=== PATIENT | male | born 1955 | race American Indian/Alaskan Native ===

== ENCOUNTER 2020-07-08 15:53 | Emergency (ER) | payer MEDICARE, OTHER ==
[~2020-07-08] VITALS: Ht 172.7 cm; Wt 77.1 kg
--- OUTSIDE RECORDS SUMMARY | ~2020-07-08 | XMS | Encounter Summary ---
Demographics + + + | Address | [address] | | | [place] [address] | + + + | Home Phone | | + + + | Preferred Language | Unknown | + + + | Marital Status | Unknown | + + + | Scientologist Affiliation | Unknown | + + + | Race | Unknown | + + + | Ethnic Group | Unknown | + + + Author + + + | Author | [facility] | | | and [place] | + + + | Organization | [facility] | | | and [place] | + + + | Address | Unknown | + + + | Phone | Unavailable | + + + Care Team Providers + +------+ + | Care Addressing Machine Operator Name | Role | Phone | + +------+ + PCP | Unavailable | + +------+ + Encounter Details +--------+ + + + + | Date | Type | Department | Care Team | Description | +--------+ + + + + | 09/20/ | Hospital | [facility] | | | | 2001 - | Encounter | [facility] | | | | | | [facility] [address] | | | | 11/14/ | | [place] | | | | 2001 | | [id number] | | | | | | [phone] | | | +--------+ + + + + Social History + +-------+ +--------+------+ | Tobacco Use | Types | Packs/Day | Years | Date | | | | | Used | | + +-------+ +--------+------+ | Never Assessed | | | | | + +-------+ +--------+------+ + + + | Sex Assigned at | Date Recorded | | | | + + + | Not on file | | + + + documented as of this encounter Plan of Treatment Not on filedocumented as of this encounter Visit Diagnoses Not on filedocumented in this encounter"
--- OUTSIDE RECORDS SUMMARY | ~2020-07-08 | XMS | Clinical Summary ---
Demographics + + + | Address | [address] | | | [place] [address] | + + + | Home Phone | | + + + | Preferred Language | Unknown | + + + | Marital Status | Unknown | + + + | Christianity Affiliation | Unknown | + + + | Race | Unknown | + + + | Ethnic Group | Unknown | + + + Author + + + | Author | [facility] | | | and [place] | + + + | Organization | [facility] | | | and [place] | + + + | Address | Unknown | + + + | Phone | Unavailable | + + + Care Team Providers + +------+ + | Care Nail Expert Name | Role | Phone | + +------+ + | Sylvester Collazo DO | VARINDER | | + +------+ + Allergies Not on File Medications Not on file Active Problems Not on file Social History + +-------+ +--------+------+ | Tobacco Use | Types | Packs/Day | Years | Date | | | | | Used | | + +-------+ +--------+------+ | Current Every Day | | 0.25 | | | | Smoker | | | | | + +-------+ +--------+------+ + + | Comments: pt intubated, unable to discuss cessation | + + + + + | Sex Assigned at | Date Recorded | | | | + + + | Not on file | | + + + Last Filed Vital Signs + + + + + | Vital Sign | Reading | Time Taken | Comments | + + + + + | Blood Pressure | 139/83 | 03/25/2016 8:56 AM | | | | | PDT | | + + + + + | Pulse | 60 | 03/25/2016 8:56 AM | | | | | PDT | | + + + + + | Temperature | - | - | | + + + + + | Respiratory Rate | - | - | | + + + + + | Oxygen Saturation | - | - | | + + + + + | Inhaled Oxygen | - | - | | | Concentration | | | | + + + + + | Weight | 81.6 kg (180 lb) | 03/25/2016 8:56 AM | | | | | PDT | | + + + + + | Height | 172.7 cm (5' 8") | 03/25/2016 8:56 AM | | | | | PDT | | + + + + + | Body Mass Index | 27.37 | 03/25/2016 8:56 AM | | | | | PDT | | + + + + + Plan of Treatment + + +-------+ + | Health Maintenance | Due Date | Last | Comments | | | | Done | | + + +-------+ + | Vaccine: | | | | | Dtap/Tdap/Td (1 - | 3 | | | | Tdap) | | | | + + +-------+ + | Vaccine: Zoster (1 | | | | | of 2) | 4 | | | + + +-------+ + | Vaccine: | | | | | Pneumococcal 65+ (1 | 9 | | | | of 1 - PPSV23) | | | | + + +-------+ + | Vaccine: Influenza | | | | | (#1) | 0 | | | + + +-------+ + Results Not on filefrom Last 3 Months
--- OUTSIDE RECORDS SUMMARY | ~2020-07-08 | XMS | Encounter Summary ---
Demographics + + + | Address | [address] | | | [place] [address] | + + + | Home Phone | | + + + | Preferred Language | Unknown | + + + | Marital Status | Unknown | + + + | Holiness Affiliation | Unknown | + + + | Race | Unknown | + + + | Ethnic Group | Unknown | + + + Author + + + | Author | [facility] | | | and [place] | + + + | Organization | [facility] | | | and [place] | + + + | Address | Unknown | + + + | Phone | Unavailable | + + + Care Team Providers + +------+ + | Care Vault Mechanic Name | Role | Phone | + +------+ + PCP | Unavailable | + +------+ + Encounter Details +--------+ + + + + | Date | Type | Department | Care Team | Description | +--------+ + + + + | 10/21/ | Hospital | [facility] | Pablo Gaona MD | Convulsions, | | 2015 - | Encounter | [facility] | [address] | unspecified | | | | CARE [address]LO[phone] | [place], [place] | convulsion type | | 10/23/ | | [address] | [id number] | ([facility]); Electrolyte | | 2014 | | [place], [place] | | imbalance | | | | [address] | | | | | | [phone] | | | +--------+ + + + [...] + + documented as of this encounter Discharge Summaries Elin Covington MD - 10/23/2015 3:26 PM PSTFormatting of this note might be different f rom the original. Discharge Summaries by Elin Covington MD at 10/23/15 1526 Author: Elin Covington MD Service: Hospitalist Author Type: Physician Filed: 10/29/15 1354 Date of Service: 10/23/15 1526 Status: Signed Babbitt Spinner: Elin Covington MD (Physician) [facility] Service: Hospitalist Discharge Summary Date of Admission: 10/21/2015 Date of Discharge: 10/23/15 Discharge Provider: ELIN COVINGTON MD Treatment Team: Consulting Physician: Gurjit Quiñones MD Admitting Provider: Pablo Gaona MD Discharge Diagnoses: Active Problems: Seizures (HCC) Electrolyte imbalance Acute respiratory failure with hypoxia (HCC) Resolved Problems: * No resolved hospital problems. * Final Diagnoses: See note and epic Procedures: * No surgery found * BRIEF HISTORY OF PRESENTATION: Pablo Gaona MD Physician Signed Certified Nurse Aide H&P 10/22/15 0431 Expand All Collapse [facility] Service: Certified Nurse Aide Admission History & Physical Mayank Vanpelt 59 y.o. Date of Admission: 10/21/2015 Requesting Physician: Dr price , Hospitalist Indication for ICU Admission: mental status changes History Obtained From: chart review CHIEF COMPLAINT: altered mental status HISTORY OF PRESENT ILLNESS Based on the available history the patient was taken to [facility] for history of passing out and seizure-like activity. The patient regained consciousness by the time he r eached the hospital and was complaining of abdominal pain and vomiting. He was treated with antibiotics for suspected UTI. On the regular floors he develop another episode of unconsc iousness which was treated as seizure and was intubated. Due to a lack of neurologist and E EG the patient was transferred to [facility]. When the patient came to [facility] he was awake, fol lowing commands. He was not able to give any history. An EEG was done which was provisiona lly negative. He was extubated to room air. There were no witnessed seizures in our hospital. The available labs from [facility] are sodium 133, potassium 3.2, chloride 102, bicarbonate 19, an and 15, BUN 19, creatinine 0.8, glucose 246, lactate 4.9, and calcium 8. 3, total bili 0.3, AST 16, ALT 11, alkaline phosphatase 86, total protein 8.1, albumin 4.2. Urine analysis was positive for leukocyte esterase and WBCs. Urine toxicology was positive for marijuana HOSPITAL COURSE: Seizures (HCC) (10/22/2015) Assessment: see neurology reccs. Will be on keppra at d/c and f/u with neurology. MRI b rain accomplished per their reccs and report below. Discussed full seizure precautions. Electrolyte imbalance (10/22/2015) Assessment: presently improved. Follow with pcp. Will c/w the magnesium and also give s ome phos, follow up labs with pcp Acute respiratory failure with hypoxia (HCC) (10/22/2015) Assessment: in setting of seizire and initially admitted to the icu as above, presently i mproved. etoh use: will d/c on MVI and thiamine As per neurology note (parial): ""ASSESSMENT & PLAN 59 year old male who presents with new onset seizures. 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 He had two additional seizures since Wednesday. He also has UTI. Curre ntly he is almost back to baseline. Neurological exam is unremarkable. EEG showed diffuse sl owing with no epileptiform discharges. - The most recent seizures are not associated with clear provoking factor. There is no obed r history of alcohol withdraw or drug use. Electrolytes are unremarkable and UTI is not suff icient to provoke seizure. Given recurrent seizure without clear provoking factor and potent ial focal onset (head turn), will recommend to continue anticonvulsant. Can continue keppra, increase to 750 mg bid. - Recommend brain MRI w/wo contrast - Seizure precautions. - Discussed safety issues including driving regulations, no driving until free of seizure f or at least 6 months""". 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 No pertinent past surgical history. No Known Allergies Prescriptions prior to admission Medication Sig Dispense Refill Last Dose Calcium-Vitamin D 600-200 MG-UNIT per tablet Take 1 tablet by mouth 2 (two) times daily . magnesium oxide (MAG-OX) 400 MG tablet Take 400 mg by mouth daily. DISCHARGE EXAM Vital Signs: BP 164/87 mmHg | Pulse 76 | Temp(Src) 98.2 F (36.8 C) (Oral) | Resp 18 | Ht 1.727 m (5' 8") | Wt 76.5 kg (168 lb 10.4 oz) | BMI 25.65 kg/m2 | SpO2 100% No data found. No data recorded. No data recorded. I&O Current Shift: I&O Yesterday: I&O Last 3 Shifts: No intake or output data in the 24 hours ending 10/29/15 1351 Physical Exam Constitutional: He is oriented to person, place, and time. He appears well-developed and we ll-nourished. No distress. Eyes: No scleral icterus. Neck: No JVD present. Cardiovascular: Normal rate and regular rhythm. No murmur heard. Pulmonary/Chest: Effort normal. No respiratory distress. He has no wheezes. He has no rales . Abdominal: Soft. Bowel sounds are normal. He exhibits no distension. There is no tenderness . There is no rebound and no guarding. Musculoskeletal: He exhibits no tenderness. Neurological: He is alert and oriented to person, place, and time. No cranial nerve deficit . Skin: No rash noted. He is not diaphoretic. No erythema. No pallor. Psychiatric: He has a normal mood and affect. His behavior is normal. Judgment and thought content normal. Nursing note and vitals reviewed. DATAResults for MAYANK KIRAN ( ) as of 10/29/2015 13:47 Ref. Range 10/22/2015 00:17 10/22/2015 00:18 10/22/2015 03:47 10/22/2015 15:04 10/23/2015 05:50 WBC Latest Range: 3.80-11.00 K/uL 8.77 15.53 (H) RBC Latest Range: 4.20-5.70 M/uL 4.21 4.56 HGB Latest Range: 13.2-17.0 g/dL 13.2 14.1 HCT Latest Range: 39.0-50.0 % 40.0 42.5 MCV Latest Range: 80.0-100.0 fl 95.1 93.3 MCH Latest Range: 27.0-34.0 pg 31.4 31.0 MCHC Latest Range: 32.0-35.5 g/dL 33.0 33.2 RDW SD Latest Range: 37-53 fl 47.3 43.3 Platelets Latest Range: 150-400 K/uL 214 235 MPV Latest Units: fl 6.5 6.6 DIFF TYPE No range found AUTOMATED AUTOMATED NEUTROPHILS Latest Units: % 64.72 80.93 LYMPHOCYTES Latest Units: % 25.91 11.66 MONOCYTES Latest Units: % 7.53 6.02 EOSINOPHILS Latest Units: % 1.35 0.85 BASOPHILS Latest Units: % 0.49 0.54 NEUTROPHILS ABS Latest Range: 1.90-7.40 K/uL 5.67 12.57 (H) LYMPHOCYTES ABS Latest Range: 1.00-3.90 K/uL 2.27 1.81 MONOCYTES ABS Latest Range: 0.00-0.80 K/uL 0.66 0.93 (H) EOSINOPHILS ABS Latest Range: 0.00-0.50 K/uL 0.12 0.13 BASOPHILS ABS Latest Range: 0.00-0.10 K/uL 0.04 0.08 SODIUM Latest Range: 135-143 mmol/L 143 140 POTASSIUM Latest Range: 3.5-4.9 mmol/L 3.7 4.0 3.6 CHLORIDE Latest Range: 99-109 mmol/L 113 (H) 108 CO2 Latest Range: 23-32 mmol/L 26 25 ANION GAP AGAP Latest Range: 5-20 mmol/L 7 10 GLUCOSE Latest Range: 65-99 mg/dL 82 89 BUN Latest Range: 8-25 mg/dL 8 6 (L) CREATININE Latest Range: 0.70-1.30 mg/dL 1.0 0.60 (L) BUN/CREAT No range found 8 10 CALCIUM Latest Range: 8.5-10.5 mg/dL 7.2 (L) 7.6 (L) EGFR Latest Range: >60 mL/min/1.73m2 >60 >60 PHOSPHORUS Latest Range: 2.3-4.8 mg/dL 1.7 (L) 2.4 1.6 (L) MAGNESIUM Latest Range: 1.7-2.4 mg/dL 2.1 2.1 2.0 INR No range found 1.0 Procedure Component Value Units Date/Time Sputum culture [[id number]] (Abnormal) Collected: 10/21/152354 Order Status: Completed Lab Status: Final result Updated: 10/24/15742 Specimen Information: Sputum / Sputum Specimen Description SPUTUM GRAM STAIN GREATER THAN 10 WBCS/LPF GRAM STAIN LESS THAN 10 SEC/LPF GRAM STAIN NO ORGANISMS SEEN GRAM STAIN Result: Testing performed at [facility];[address] [place] [address] CULTURE 1+ YEAST ISOLATED (A) NO FURTHER WORKUP Result: Testing performed at [facility], [address] [place] [address] MRSA by PCR [[id number]] Collected: 10/21/152353 Order Status: Completed Lab Status: Final result Updated: 10/22/15113 Specimen Information: Nasopharyngeal / Nares(Nose) SOURCE NARES(NOSE) Comment: Testing performed at [facility];[address] [place] [address] MRSA PCR NEGATIVE Comment: Testing performed at [facility];[address] [place] [address] MRSA by PCR [[id number]] Collected: 10/22/15 0037 Order Status: Canceled Lab Status: No result Specimen Information: Nasopharyngeal / Nasopharyngeal Culture MRI brain with and without contrast [[id number]] Resulted: 10/22/15 191 Order Status: Completed Updated: 10/22/151923 Narrative: MAYANK KIRAN 10/22/2015 6:33 PM HISTORY: New onset seizures. TECHNIQUE: Using a 1.5 Ivana MRI unit, standard multiplanar pre-and post intravenous contrast sequence s through the brain were obtained.15 milliliters of MultiHance were utilized. COMPARISON: None. FINDINGS: There is no midline shift. The ventricles, sulci, and basilar cisterns are normal. There is focal low T1/high T2 signal within the right basal ganglia, likely reflecting an o ld lacunar infarct vs. dilated perivascular space. No additional low or high signal lesions are seen within the brain. No abnormal brain parenchymal or meningeal enhancement. The hippo campi are symmetric bilaterally. The extra-axial spaces are normal. The vascular flow voids appear normal. No intracranial h emorrhage. The paranasal sinuses are normal. The mastoids are normal. The orbits are unremarkable. No osseous lesions. Impression: 1. No acute intracranial hemorrhage, mass lesion, or acute infarct. 2. No abnormal brain parenchymal enhancement. X-ray chest AP only [[id number]] Resulted: 10/22/15 0040 Order Status: Completed Updated: 10/22/1543 Narrative: EXAM: CHEST RADIOGRAPHY EXAM DATE: 10/21/2015 11:55 PM. CLINICAL HISTORY: Cardiopulmonary failure COMPARISON: None. TECHNIQUE: 1 view. FINDINGS: Lungs/Pleura: No focal opacities evident. No pneumothorax or pleural effusion. Mediastinum: Within exam limitations, cardiomediastinal contour is normal. Other: None. Impression: 1. Endotracheal tube tip is approximately 1.5 cm above the agustin. 2. Lung volumes and heart size within normal limits. 3. There is no evidence of lobar consolidation or pneumothorax. RADIA Electronically signed by Geovanny Mitchell MD on Oct 22 2015 12:40AM Referring Provider Pamela ne: [phone] ID: [id number] Sputum culture [[id number]] (Abnormal) Collected: 10/21/15 7635 Order Status: Completed Lab Status: Final result Updated: 10/24/15 0726 Specimen Information: Sputum / Sputum Specimen Description SPUTUM GRAM STAIN GREATER THAN 10 WBCS/LPF GRAM STAIN LESS THAN 10 SEC/LPF GRAM STAIN NO ORGANISMS SEEN GRAM STAIN Result: Testing performed at [facility];[address] [place] [address];[place] [address] CULTURE 1+ YEAST ISOLATED (A) NO FURTHER WORKUP Result: Testing performed at [facility], [address] [place] [address] MRSA by PCR [[id number]] Collected: 10/21/15 2354 Order Status: Completed Lab Status: Final result Updated: 10/22/15113 Specimen Information: Nasopharyngeal / Nares(Nose) SOURCE NARES(NOSE) Comment: Testing performed at [facility];[address] [facility];[place] [address] MRSA PCR NEGATIVE Comment: Testing performed at [facility];[address] [place] [address] MRSA by PCR [[id number]] Collected: 10/22/15 003 Order Status: Canceled Lab Status: No result Specimen Information: Nasopharyngeal / Nasopharyngeal Culture Disposition: Home Condition: Stable Code Status: Full Code Discharge Instructions CBC w/auto diff (reflex to manual) Standing Status: Future Standing Exp. Date: 10/31/15 Order Comments: PLEASE FORWARD TO HIS pcp : SYLVESTER Collazo Comprehensive metabolic panel Standing Status: Future Standing Exp. Date: 10/31/15 Order Comments: PLEASE FORWARD TO HIS pcp : SYLVESTER Collazo Magnesium Standing Status: Future Standing Exp. Date: 10/31/15 Order Comments: PLEASE FORWARD TO HIS pcp : SYLVESTER Collazo Phosphorus Standing Status: Future Standing Exp. Date: 10/31/15 Order Comments: PLEASE FORWARD TO HIS pcp : SYLVESTER Collazo Diet General Seizure precautions Nursing communication Order Comments: Please ensure patient has printed seizure precautions to include but not li mited to NO DRIVING, NO SWIMMING, NO BEING AROUND OPEN FLAMES, NO CLIMBING LADDERS, NO DOIN G ANYTHING THAT COULD PROVE DANGEROUS TO YOURSELF OR OTHERS IF YOU WERE TO HAVE A SEIZURE. NO ALCOHOL OR ILLICIT DRUGS Activity as Advised by Physical Therapy Call MD for: Order Comments: ANY DISTRESS OR CONCERNS ANY FURTHER SEIZURES Call MD for: Extreme Fatigue Call MD for: Persistant Dizziness or Light-Headedness Call MD for: Hives Call MD for: Difficulty Breathing, Headache or Visual Disturbances Call MD for: Redness, Tenderness, or Signs of Infection (Pain, Swelling, Redness, Odor or Green/Yellow Discharge Around Incision Site) Call MD for: Severe Uncontrolled Pain Call MD for: Persistant Nausea and Vomiting Call MD for: Temperature > 100.4F (38C) Follow [place]: [place] [address] [place] [address] PLEASE TRY TO SCHEDULE AN APPOINTMENT THE END OF THIS WEEK OR BEGINING OF NEXT TO F/U ON IS ADMISSION Gurjit Quiñones MD [address] [facility] [address] Schedule an appointment as soon as possible for a visit in 1 month OR SOONER IF NEEDED RESUME CARE WITH ALL PROVIDERS YOU WERE SEEING BEFORE ADMISSION Medication List START taking these medications levetiracetam 750 MG tablet QTY: 60 tablet Refills: 0 Commonly known as: KEPPRA Take 1 tablet by mouth 2 (two) times daily. multivitamin tablet QTY: 30 tablet Refills: 0 Take 1 tablet by mouth daily. phosphorus 250 MG tablet QTY: 14 tablet Refills: 0 Commonly known as: K PHOS NEUTRAL Take 1 tablet by mouth 2 (two) times daily. thiamine 100 MG tablet QTY: 30 tablet Refills: 0 Commonly known as: VITAMIN B-1 Take 1 tablet by mouth daily. 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 You may get the following medications from any pharmacy - levetiracetam 750 MG tablet - multivitamin tablet - phosphorus 250 MG tablet - thiamine 100 MG tablet Discharge took 40 minutes, to include final examination, discussion of admission, and prepa ration of prescriptions, instructions for on-going care, follow-up and documentation of disc harge summary. ELIN COVINGTON MD 10/23/2015 documented in this encounter Progress Notes Conversion Transaction, Provider Unknown - 10/23/2015 5:57 PM PSTFormatting of this note m ight be different from the original. Nurse Progress Note by Sharona Talbert RN at 10/23/151756 Author: Sharona Talbert RN Service: (none) Author Type: Registered Nurse Filed: 10/23/151757 Date of Service: 10/23/151756 Status: Signed Babbitt Spinner: Sharona Talbert RN (Registered Nurse) D/c instructions, Rx's, lab orders, and seizure precautions given and explained to pt and h is brother, both state understanding. Pt escorted via wheelchair to private vehicle. Pt left in stable condition. onver marivel Transaction, Provider Unknown - 10/23/2015 2:18 PM PST Therapy Progress Note by Deborah Conner PT at 10/23/151417 Author: Deborah Conner PT Service: (none) Author Type: Physical Therapist Filed: 10/23/151417 Date of Service: 10/23/151417 Status: Signed Babbitt Spinner: Deborah Conner PT (Physical Therapist) 10/23/15 1300 PT Last Visit PT Received On 10/23/15 Reason for Treatment Cardiac Requires PT Follow Up No Follow up PT Only? No Assistance Required Independent Wood Chopper Needed No Other Comments Comments PT trialed SPC and it is more of a fall hazard and patient able to mobilize safely with paying attention and looking foward rather than at the ground.PT to be dc'ed and pt to mobilize as needed. Cognition Overall Cognitive Status Not assessed Bed Mobility Supine to Sit Independent Sit to Supine Independent Scooting Independent Transfers Sit to/from Stand Independent (from/to bed) Mobility Ambulation Assistance Independent;Verbal instruction Maximal Ambulation Distance (feet) 740 Total Ambulation Distance (feet) 740 Pattern WFL (mild gait path deviation when not paying attention) Assistive Device None Balance Balance (appropriate balance when paying attention) Activity Tolerance Activity Tolerance Patient tolerated treatment without report of fatigue Plan Treatment/Interventions Discharge skilled PT services Progress Reached highest level of independence with therapy Recommendation Recommendations Home Assist;OP PT Equipment Recommended None PT Ready for Discharge Yes Recommendation Comments Pt safe to return home-PT rec OP PT for L foot weakness (chronic) a nd mild gait impairments onver marivel Transaction, Provider Unknown - 10/23/2015 2:16 PM PST Case Management by Maynor Schofield MS, GLAZIER SUPERVISOR at 10/23/15 1416 Author: Maynor Schofield MS, GLAZIER SUPERVISOR Service: (none) Author Type: Architecture Department Chair Filed: 10/23/15 1422 Date of Service: 10/23/151415 Status: Signed Babbitt Spinner: Maynor Schofield MS, GLAZIER SUPERVISOR (Architecture Department Chair) Discharge planning - Cm met with pt, his sister Roxie,and extended family in room. PT and f raisay confirm that there is supervision at home for patient at all times. The discharge plan remains the same as previously charted on 10/22/2015 by TITI. CM educated re: PT/OT recommenda tions, family will supplement pt's adls and IADLS as appropriate. RN notified. Family is kathleen dy to transport pt back to [place] today. onver marivel Transaction, Provider Unknown - 10/23/2015 8:05 AM PST Therapy Progress Note by KAREN Aranda at 10/23/15 08 Author: KAREN Aranda Service: (none) Author Type: Occupational Therapist Filed: 10/23/15 1146 Date of Service: 10/23/15804 Status: Signed Babbitt Spinner: KAREN Aranda (Occupational Therapist) 10/23/15804 OT Last Visit OT Received On 10/23/15 Reason for Treatment Deconditioning Requires OT Follow Up Awaiting tx order OT Eval/Reassessment Date 10/23/15 Assistance Required 1 person Wood Chopper Needed No Family/Caregiver Present No Precautions Other Precautions fall precautions Other Comments Comments Pt supine in bed sleeping but awoke easily and was agreeable to OT assessment. VSS stable throughout, RN present with pt at end of session. Plan Treatment Interventions ADL retraining;IADL retraining;UE strengthening;Cognitive reorienta tion;Equipment eval/education;Compensatory technique education Progress Progressing toward goals OT Frequency QD;5x/wk Requires OT Follow Up Yes Recommendation Recommendation Return to prior living conditions;Home with daytime assist;Home OT Equipment Recommended Shower chair with back;Betting Clerk;Sponge long handled OT Ready for Discharge Yes 10/23/15 0805 Home Environment Type of Home Home one story Home Exterior Layout Entry steps none Home Interior Layout Lives on main level with bedroom/bathroom Bathroom Shower/Tub Tub/shower unit Bathroom Toilet Standard Bathroom Equipment (none ) Bathroom Accessibility Not accessible Home Equipment None Additional Comments Pt seen by OT d/t deconditioning s/p seizure like activity; intubated a nd transfered to [facility]. Pt extubated. Chart review indicates mental status change. Pt states he hasnt noticed any change. No family present at time of eval. Pt reports no fall hx. Prior Function Level of [place] Driving in community;Independent with functional mobility;Independent with ADLs;Independent with IADLs Lives With Sibling(s) (and "step folks") ADL Assistance Independent Home ADL's Independent Fireproof Door Maker Making bed;Washing dishes Employment On disability Leisure Hobbies-yes (Comment) (leather working ) ADL Grooming Assistance Standby assist (minor LOB; pt self corrected by holding onto sink ) Grooming impacted by Safety concerns Bathing Assistance Other (comment) (siulated tub/shower t/f; pt able to step high enough ) Bathing impacted by (to clear tub ledge; holding onto wall for support) UE Dressing Assistance BISI (hospital gown ) LE Dressing Assistance Standby assist (educated on use of parts processor to obtain clothing ) Lower body dressing impacted by Endurance;Safety concerns Toileting Assistance with Device Supervision Toileting impacted by Safety concerns;Endurance Functional Assistance Supervision;Standby assist Toileting transfer impacted by Safety concerns Additional Comments pt able to ambulate in room w/SPC and supervision. Pt educated on use o f AE will need shower chair. 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 See below for cog assessment details. Pt would benefit from continued acute care OT for str engthening to inc activity tolerance with daily tasks, reinforcement of ed on AE, cognitive activities to improve attention, memory and general executive functioning for daily tasks/IA DLs. Vision-Basic Assessment Current Vision Wears glasses Cognition Overall Cognitive Status Impaired Orientation Level Oriented Comments Participated in the [place] Cognitive Assessment (MoCA) scored 14/30. Indicating s/s consistent with dementia. Pt was unable to complete trail making task, was able to copy a 3D figure, able to draw a clock but not accurately place hands to correct time. Able to id entify 2/3 animals, scored 2/5 on Attention subtests; 1/3 on Language sub tests, 2/2 on Abst raction. 0/5 Recall of words and 4/6 for orientation. Recommend supervision/assist with IADL s upon d/c. Sensation Light Touch No apparent deficits RUE Assessment RUE Assessment WFL (deconditioned ) LUE Assessment LUE Assessment (decondioned) Hand Function Gross Grasp Functional Functional Gross Grasp Able to grasp objects without difficulty;Able to hold objects in dom inant hand;Able to hold objects in non-dominant hand;Pen/Pencil;AD for mobility / ADL Coordination Functional Assessment Assessment Decreased ADL status;Decreased UE strength;Decreased cognition;Decreased enduran ce;Decreased high-level ADLs Prognosis Good;With family;With continued OT s/p acute discharge Goal Formulation Patient ADL Goals Pt Will Perform All ADL's (pt will particiapte in home safety questionnaire and ed) Arm Goals Pt Will Perform AROM (pt will complete simple IADL -making bed with SBA ) Pt Will Complete Theraband Exer B UE;2 sets;10 reps;Level 1 Theraband Plan Treatment Interventions ADL retraining;IADL retraining;UE strengthening;Cognitive reorienta tion;Equipment eval/education;Compensatory technique education Progress Progressing toward goals OT Frequency QD;5x/wk Requires OT Follow Up Yes Recommendation Recommendation Return to prior living conditions;Home with daytime assist;Home OT Equipment Recommended Shower chair with back;Betting Clerk;Sponge long handled OT Ready for Discharge Yes Education Completed: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 He had two additional seizures since Wednesday. He also has UTI. Curre ntly he is almost back to baseline. Neurological exam is unremarkable. EEG showed diffuse sl owing with no epileptiform discharges. - The most recent seizures are not associated with clear provoking factor. There is no obed r history of alcohol withdraw or drug use. Electrolytes are unremarkable and UTI is not suff icient to provoke seizure. Given recurrent seizure without clear provoking factor and potent ial focal onset (head turn), will recommend to continue anticonvulsant. Can continue keppra, increase to 750 mg bid. - Recommend brain MRI w/wo contrast - Seizure precautions. - Discussed safety issues including driving regulations, no driving until free of seizure f or at least 6 months. Code Status: Full Code Primary Care Physician: SYLVESTER COLLAZO Thank you for allowing me to participate in the care of this patient. Please call if there are any questions. Gurjit Quiñones MD 10/22/2015 5:15 PM documented in this encounte r Miscellaneous Notes Plan of Care - Conversion Transaction, Provider Unknown - 10/22/2015 9:18 PM PST Plan of Care by Ciara Escobar RN at 10/22/152117 Author: Ciara Escobar RN Service: (none) Author Type: Registered Nurse Filed: 10/22/152117 Date of Service: 10/22/152117 Status: Signed Babbitt Spinner: Ciara Escobar RN (Registered Nurse) Problem: Safety Goal: Patient will be injury free during hospitalization Assess and monitor vitals signs, neurological status including level of consciousness and o rientation. Assess patient s risk for falls and implement fall prevention plan of care and interventions per hospital policy. Ensure arm band on, uncluttered walking paths in room, adequate room lighting, call light a nd overbed table within reach, bed in low position, wheels locked, side rails up per policy, and non-skid footwear provided. Outcome: Progressing Bed alarm initiated lan o f Care - Elin Covington MD - 10/22/2015 10:12 AM PSTFormatting of this note might be dif ferent from the original. Plan of Care by Elin Covington MD at 10/22/15 1012 Author: Elin Covington MD Service: Hospitalist Author Type: Physician Filed: 10/22/15 1013 Date of Service: 10/22/15 1012 Status: Signed Babbitt Spinner: Elin Covington MD (Physician) Patient accepted to hospitalist service. Neurology already consulted and pending eval, eeg pending, consulted case mgt and PT for ev al. Seizure precautions documented in this encounter Plan of Treatment Not on filedocumented as of this encounter Procedures + +--------+ + + + | Procedure Name | Priori | Date/Time | Associated Diagnosis | Comments | | | ty | | | | + +--------+ + + + | EXTERNAL LAB: CBC | Routin | 10/23/2015 | | Results for this | | | e | 5:50 AM | | procedure are in the | | | | PST | | results section. | + +--------+ + + + | PHOSPHORUS | Routin | 10/23/2015 | | Results for this | | | e | 5:50 AM | | procedure are in the | | | | PST | | results section. | + +--------+ + + + | MAGNESIUM | Routin | 10/23/2015 | | Results for this | | | e | 5:50 AM | | procedure are in the | | | | PST | | results section. | + +--------+ + + + | BASIC METABOLIC | Routin | 10/23/2015 | | Results for this | | PANEL | e | 5:50 AM | | procedure are in the | | | | PST | | results section. | + +--------+ + + + | MRI BRAIN W WO | Routin | 10/22/2015 | | Results for this | | CONTRAST | e | 6:33 PM | | procedure are in the | | | | PST | | results section. | + +--------+ + + + | POTASSIUM | Routin | 10/22/2015 | | Results for this | | | e | 3:04 PM | | procedure are in the | | | | PST | | results section. | + +--------+ + + + | PHOSPHORUS | Routin | 10/22/2015 | | Results for this | | | e | 3:47 AM | | procedure are in the | | | | PST | | results section. | + +--------+ + + + | MAGNESIUM | Routin | 10/22/2015 | | Results for this | | | e | 3:47 AM | | procedure are in the | | | | PST | | results section. | + +--------+ + + + | PROTIME INR | Routin | 10/22/2015 | | Results for this | | | e | 12:18 AM | | procedure are in the | | | | PST | | results section. | + +--------+ + + + | EXTERNAL LAB: CBC | Routin | 10/22/2015 | | Results for this | | | e | 12:17 AM | | procedure are in the | | | | PST | | results section. | + +--------+ + + + | PHOSPHORUS | Routin | 10/22/2015 | | Results for this | | | e | 12:17 AM | | procedure are in the | | | | PST | | results section. | + +--------+ + + + | MAGNESIUM | Routin | 10/22/2015 | | Results for this | | | e | 12:17 AM | | procedure are in the | | | | PST | | results section. | + +--------+ + + + | LACTIC ACID | Routin | 10/22/2015 | | Results for this | | | e | 12:17 AM | | procedure are in the | | | | PST | | results section. | + +--------+ + + + | BASIC METABOLIC | Routin | 10/22/2015 | | Results for this | | PANEL | e | 12:17 AM | | procedure are in the | | | | PST | | results section. | + +--------+ + + + | POC GLUCOSE | Routin | 10/21/2015 | | Results for this | | | e | 11:59 PM | | procedure are in the | | | | PST | | results section. | + +--------+ + + + | XR CHEST 1 VIEW | Routin | 10/21/2015 | | Results for this | | | e | 11:55 PM | | procedure are in the | | | | PST | | results section. | + +--------+ + + + | GRAM STAIN, REFLEX | Timed | 10/21/2015 | | Results for this | | SPUTUM CULTURE | | 11:55 PM | | procedure are in the | | | | PST | | results section. | + +--------+ + + + | MRSA NAAT | Timed | 10/21/2015 | | Results for this | | | | 11:54 PM | | procedure are in the | | | | PST | | results section. | + +--------+ + + + documented in this encounter Results External Lab: CBC (10/23/2015 5:50 AM PST) + + + + + + | Component | Value | Ref Range | Performed | Pathologist | | | | | At | Signature | + + + + + + | WBC | 15.53 (H)Comment: | 3.80 - 11.00 | EXTERNAL | | | | Testing performed at | K/uL | LAB | | | | [facility];[address];[place] [address] | | | | + + + + + + | Non- | 4.56Comment: Testing | 4.20 - 5.70 | EXTERNAL | | | Red Blood | performed at [facility];[address] | M/uL | LAB | | | Cells | [address];[place] | | | | | Counted | [address] | | | | + + + + + + | Hemoglobin | 14.1Comment: Testing | 13.2 - 17.0 | EXTERNAL | | | | performed at [facility];[address] | g/dL | LAB | | | | [address];[place] | | | | | | [address] | | | | + + + + + + | Hematocrit, | 42.5Comment: Testing | 39.0 - 50.0 % | EXTERNAL | | | POC | performed at [facility];[address] | | LAB | | | | [address];[place] | | | | | | [address] | | | | + + + + + + | MCV | 93.3Comment: Testing | 80.0 - 100.0 fl | EXTERNAL | | | | performed at [facility];[address] | | LAB | | | | [address];[place] | | | | | | [address] | | | | + + + + + + | MCH | 31.0Comment: Testing | 27.0 - 34.0 pg | EXTERNAL | | | | performed at [facility];[address] | | LAB | | | | [address];[place] | | | | | | [address] | | | | + + + + + + | MCHC | 33.2Comment: Testing | 32.0 - 35.5 | EXTERNAL | | | | performed at [facility];[address] | g/dL | LAB | | | | [address];[place] | | | | | | [address] | | | | + + + + + + | RDW-CV | 43.3Comment: Testing | 37 - 53 fl | EXTERNAL | | | | performed at [facility];[address] | | LAB | | | [address];[place] | | | | | | [address] | | | | + + + + + + | Platelet | 235Comment: Testing | 150 - 400 K/uL | EXTERNAL | | | Count | performed at [facility];[address] | | LAB | | | Plasma | [address];[place] | | | | | | [address] | | | | + + + + + + | MPV | 6.6Comment: Testing | fl | EXTERNAL | | | | performed at [facility];[address] | | LAB | | | [address];[place] | | | | | | [address] | | | | + + + + + + | Differentia | AUTOMATEDComment: | | EXTERNAL | | | l Type | Testing performed at | | LAB | | | | [facility];[address];[place] [address] | | | | + + + + + + | % Segmented | 80.93Comment: Testing | % | EXTERNAL | | | | performed at [facility];[address] | | LAB | | | Neutrophils | [address];[place] | | | | | | [address] | | | | + + + + + + | % | 11.66Comment: Testing | % | EXTERNAL | | | Lymphocytes | performed at [facility];[address] | | LAB | | | | [address];[place] | | | | | | [address] | | | | + + + + + + | % Monocytes | 6.02Comment: Testing | % | EXTERNAL | | | | performed at [facility];[address] | | LAB | | | | [address];[place] | | | | | | [address] | | | | + + + + + + | % | 0.85Comment: Testing | % | EXTERNAL | | | Eosinophils | performed at [facility];[address] | | LAB | | | | [address];[place] | | | | | | [address] | | | | + + + + + + | % Basophils | 0.54Comment: Testing | % | EXTERNAL | | | | performed at [facility];[address] | | LAB | | | | [address];[place] | | | | | | [address] | | | | + + + + + + | Absolute | 12.57 (H)Comment: | 1.90 - 7.40 | EXTERNAL | | | Segmented | Testing performed at | K/uL | LAB | | | Neutrophils | [facility];[address];[place] [address] | | | | + + + + + + | Absolute | 1.81Comment: Testing | 1.00 - 3.90 | EXTERNAL | | | Lymphocytes | performed at [facility];[address] | K/uL | LAB | | | | [address];[place] | | | | | | [address] | | | | + + + + + + | Absolute | 0.93 (H)Comment: Testing | 0.00 - 0.80 | EXTERNAL | | | Monocytes | performed at [facility];[address] | K/uL | LAB | | | | [address];[place] | | | | | | [address] | | | | + + + + + + | Absolute | 0.13Comment: Testing | 0.00 - 0.50 | EXTERNAL | | | Eosinophils | performed at [facility];[address] | K/uL | LAB | | | | [address];[place] | | | | | | [address] | | | | + + + + + + | Absolute | 0.08Comment: Testing | 0.00 - 0.10 | EXTERNAL | | | Basophils | performed at [facility];[address] | K/uL | LAB | | | | [address];[place], [place] | | | | | | [address] | | | | + + + + + + + + | Specimen | + + | Blood specimen | | (specimen) | + + + +---------+ + + | Performing | Address | City/State/Zipcode | Phone Number | | Organization | | | | + +---------+ + + | EXTERNAL LAB | | | | + +---------+ + + Phosphorus (10/23/2015 5:50 AM PST) + + + + + + | Component | Value | Ref Range | Performed | Pathologist | | | | | At | Signature | + + + + + + | PHOSPHORUS | 1.6 (L)Comment: Testing | 2.3 - 4.8 mg/dL | EXTERNAL | | | | performed at [facility];[address] | | LAB | | | [address];[place], [place] | | | | | | [address] | | | | + + + + + + + + | Specimen | + + | Blood specimen | | (specimen) | + + + +---------+ + + | Performing | Address | City/State/Zipcode | Phone Number | | Organization | | | | + +---------+ + + | EXTERNAL LAB | | | | + +---------+ + + Magnesium (10/23/2015 5:50 AM PST) + + + + + + | Component | Value | Ref Range | Performed | Pathologist | | | | | At | Signature | + + + + + + | Magnesium | 2.0Comment: Testing | 1.7 - 2.4 mg/dL | EXTERNAL | | | | performed at [facility];[address] | | LAB | | | | [address];[place] | | | | | | [address] | | | | + + + + + + + + | Specimen | + + | Blood specimen | | (specimen) | + + + +---------+ + + | Performing | Address | City/State/Zipcode | Phone Number | | Organization | | | | + +---------+ + + | EXTERNAL LAB | | | | + +---------+ + + Basic Metabolic Panel (10/23/2015 5:50 AM PST) + + + + + + | Component | Value | Ref Range | Performed | Pathologist | | | | | At | Signature | + + + + + + | Na | 140Comment: Testing | 135 - 143 | EXTERNAL | | | | performed at [facility];[address] | mmol/L | LAB | | | | [address];[place] | | | | | | [address] | | | | + + + + + + | K | 3.6Comment: Testing | 3.5 - 4.9 | EXTERNAL | | | | performed at [facility];[address] | mmol/L | LAB | | | | [address];[place] | | | | | | [address] | | | | + + + + + + | Cl | 108Comment: Testing | 99 - 109 mmol/L | EXTERNAL | | | | performed at [facility];[address] | | LAB | | | | [address];[place] | | | | | | [address] | | | | + + + + + + | CO2 | 25Comment: Testing | 23 - 32 mmol/L | EXTERNAL | | | | performed at [facility];[address] | | LAB | | | | [address];[place] | | | | | | [address] | | | | + + + + + + | Anion Gap | 10Comment: Testing | 5 - 20 mmol/L | EXTERNAL | | | | performed at [facility];[address] | | LAB | | | | [address];[place] | | | | | | [address] | | | | + + + + + + | Glucose, | 89Comment: Testing | 65 - 99 mg/dL | EXTERNAL | | | Fasting | performed at [facility];[address] | | LAB | | | | [address];[place] | | | | | | [address] | | | | + + + + + + | BUN | 6 (L)Comment: Testing | 8 - 25 mg/dL | EXTERNAL | | | | performed at [facility];[address] | | LAB | | | | [address];[place] | | | | | | [address] | | | | + + + + + + | Creatinine | 0.60 (L)Comment: Testing | 0.70 - 1.30 | EXTERNAL | | | | performed at [facility];[address] | mg/dL | LAB | | | | [address];[place] | | | | | | [address] | | | | + + + + + + | BUN/Creatin | 10Comment: Testing | | EXTERNAL | | | ine Ratio | performed at [facility];[address] | | LAB | | | | [address];[place] | | | | | | [address] | | | | + + + + + + | Calcium | 7.6 (L)Comment: Testing | 8.5 - 10.5 | EXTERNAL | | | | performed at [facility];[address] | mg/dL | LAB | | | | [address];[place] | | | | | | [address] | | | | + + + + + + | Estimated | >60Comment: GFR <60: | mL/min/1.73m2 | EXTERNAL | | | GFR | CHRONIC KIDNEY DISEASE, | | LAB | | | | IF FOUND OVER A 3 MONTH | | | | | | PERIOD.GFR <15: KIDNEY | | | | | | FAILURE.FOR | | | | | | AMERICANS, MULTIPLY THE | | | | | | CALCULATED GFR BY | | | | | | 1.210.Testing performed | | | | | | at [facility];[address] [place] [address] | | | | | | [facility];[place] [address] | | | | + + + + + + + + | Specimen | + + | Blood specimen | | (specimen) | + + + +---------+ + + | Performing | Address | City/State/Zipcode | Phone Number | | Organization | | | | + +---------+ + + | EXTERNAL LAB | | | | + +---------+ + + MRI Brain w wo Contrast (10/22/2015 6:33 PM PST) + + | Specimen | + + | | + + + + + | Impressions | Performed At | + + + | 1. No acute intracranial hemorrhage, mass lesion, or acute | | | infarct. 2. No abnormal brain parenchymal enhancement. | | | | | + + + + + + | Narrative | Performed At | + + + | MAYANK FAUSTIN 10/22/2015 6:33 PM HISTORY: New onset seizures. | | | TECHNIQUE: Using a 1.5 Ivana MRI unit, standard multiplanar | | | pre-and post intravenous contrast sequences through the brain were | | | obtained.15 milliliters of MultiHance were utilized. COMPARISON: | | | None. FINDINGS: There is no midline shift. The ventricles, | | | sulci, and basilar cisterns are normal. There is focal low T1/high | | | T2 signal within the right basal ganglia, likely reflecting an old | | | lacunar infarct vs. dilated perivascular space. No additional low or | | | high signal lesions are seen within the brain. No abnormal brain | | | parenchymal or meningeal enhancement. The hippocampi are symmetric | | | bilaterally. The extra-axial spaces are normal. The vascular flow | | | voids appear normal. No intracranial hemorrhage. The paranasal | | | sinuses are normal. The mastoids are normal. The orbits are | | | unremarkable. No osseous lesions. | | + + + + + | Procedure Note | + + | Sean Pereira - 06/30/2019 11:38 AM PDT MAYANK KIRAN10/22/2015 6:33 PM | | HISTORY:New onset seizures. TECHNIQUE:Using a 1.5 Ivana MRI unit, standard multiplanar | | pre-and post intravenous contrast sequences through the brain were obtained.15 | | milliliters of MultiHance were utilized. COMPARISON:None. FINDINGS: There is no midline | | shift. The ventricles, sulci, and basilar cisterns are normal. There is focal low | | T1/high T2 signal within the right basal ganglia, likely reflecting an old lacunar | | infarct vs. dilated perivascular space. No additional low or high signal lesions are | | seen within the brain. No abnormal brain parenchymal or meningeal enhancement. The | | hippocampi are symmetric bilaterally. The extra-axial spaces are normal. The vascular | | flow voids appear normal. No intracranial hemorrhage. The paranasal sinuses are normal. | | The mastoids are normal. The orbits are unremarkable. No osseous lesions. IMPRESSION: 1. | | No acute intracranial hemorrhage, mass lesion, or acute infarct.2. No abnormal brain | | parenchymal enhancement. | | | |There is no midline shift. The ventricles, sulci, and basilar cisterns are normal. | | | |There is focal low T1/high T2 signal within the right basal ganglia, likely reflecting an o ld lacunar infarct vs. dilated perivascular space. No additional low or high signal lesions are seen within the brain. No | |abnormal brain parenchymal or meningeal | |enhancement. The hippocampi are symmetric bilaterally. | | | |The extra-axial spaces are normal. The vascular flow voids appear normal. No intracranial h emorrhage. | | | |The paranasal sinuses are normal. The mastoids are normal. The orbits are unremarkable. No osseous lesions. | | | |IMPRESSION: | |1. No acute intracranial hemorrhage, mass lesion, or acute infarct. | |2. No abnormal brain parenchymal enhancement. | | | | | + + Potassium (10/22/2015 3:04 PM PST) + + + + + + | Component | Value | Ref Range | Performed | Pathologist | | | | | At | Signature | + + + + + + | K | 4.0Comment: Testing | 3.5 - 4.9 | EXTERNAL | | | | performed at [facility];[address] | mmol/L | LAB | | | | [address];[place] | | | | | | [address] | | | | + + + + + + + + | Specimen | + + | Blood specimen | | (specimen) | + + + +---------+ + + | Performing | Address | City/State/Zipcode | Phone Number | | Organization | | | | + +---------+ + + | EXTERNAL LAB | | | | + +---------+ + + Phosphorus (10/22/2015 3:47 AM PST) + + + + + + | Component | Value | Ref Range | Performed | Pathologist | | | | | At | Signature | + + + + + + | PHOSPHORUS | 2.4Comment: Testing | 2.3 - 4.8 mg/dL | EXTERNAL | | | | performed at [facility], [address] | | LAB | | | | [address], | | | | | | [place] [address] | | | | + + + + + + + + | Specimen | + + | Blood specimen | | (specimen) | + + + +---------+ + + | Performing | Address | City/State/Zipcode | Phone Number | | Organization | | | | + +---------+ + + | EXTERNAL LAB | | | | + +---------+ + + Magnesium (10/22/2015 3:47 AM PST) + + + + + + | Component | Value | Ref Range | Performed | Pathologist | | | | | At | Signature | + + + + + + | Magnesium | 2.1Comment: Testing | 1.7 - 2.4 mg/dL | EXTERNAL | | | | performed at [facility], [address] | | LAB | | | | [address], | | | | | | [place] [address] | | | | + + + + + + + + | Specimen | + + | Blood specimen | | (specimen) | + + + +---------+ + + | Performing | Address | City/State/Zipcode | Phone Number | | Organization | | | | + +---------+ + + | EXTERNAL LAB | | | | + +---------+ + + Jacqueime INR (10/22/2015 12:18 AM PST) + + + + + + | Component | Value | Ref Range | Performed | Pathologist | | | | | At | Signature | + + + + + + | INR | 1.0Comment: REFERENCE | | EXTERNAL | | | | RANGE:0.9 - 1.2 | | LAB | | | | NON-ANTICOAGULATED2.0 | | | | | | - 3.0 ALL OTHER | | | | | | THERAPEUTIC | | | | | | INDICATIONS2.5 - 3.5 | | | | | | MECHANICAL HEART VALVES, | | | | | | RECURRENT OR SYSTEMIC | | | | | | EMBOLISMTesting | | | | | | performed at [facility] | | | | | | [address];[place], [place] | | | | | | [address] | | | | + + + + + + + + | Specimen | + + | Blood specimen | | (specimen) | + + + +---------+ + + | Performing | Address | City/State/Zipcode | Phone Number | | Organization | | | | + +---------+ + + | EXTERNAL LAB | | | | + +---------+ + + External Lab: CBC (10/22/2015 12:17 AM PST) + + + + + + | Component | Value | Ref Range | Performed | Pathologist | | | | | At | Signature | + + + + + + | WBC | 8.77Comment: Testing | 3.80 - 11.00 | EXTERNAL | | | | performed at [facility];[address] | K/uL | LAB | | | | [address];[place], [place] | | | | | | [address] | | | | + + + + + + | Non- | 4.21Comment: Testing | 4.20 - 5.70 | EXTERNAL | | | Red Blood | performed at [facility];[address] | M/uL | LAB | | | Cells | [address];[place] | | | | | Counted | [id number] | | | | + + + + + + | Hemoglobin | 13.2Comment: Testing | 13.2 - 17.0 | EXTERNAL | | | | performed at [facility];[address] | g/dL | LAB | | | | [address];[place] | | | | | | [address] | | | | + + + + + + | Hematocrit, | 40.0Comment: Testing | 39.0 - 50.0 % | EXTERNAL | | | POC | performed at [facility];[address] | | LAB | | | | [address];[place] | | | | | | [address] | | | | + + + + + + | MCV | 95.1Comment: Testing | 80.0 - 100.0 fl | EXTERNAL | | | | performed at [facility];[address] | | LAB | | | | [address];[place] | | | | | | [address] | | | | + + + + + + | MCH | 31.4Comment: Testing | 27.0 - 34.0 pg | EXTERNAL | | | | performed at [facility];[address] | | LAB | | | | [address];[place] | | | | | | [address] | | | | + + + + + + | MCHC | 33.0Comment: Testing | 32.0 - 35.5 | EXTERNAL | | | | performed at [facility];[address] | g/dL | LAB | | | | [address];[place] | | | | | | [address] | | | | + + + + + + | RDW-CV | 47.3Comment: Testing | 37 - 53 fl | EXTERNAL | | | | performed at [facility];[address] | | LAB | | | | [address];[place] | | | | | | [address] | | | | + + + + + + | Platelet | 214Comment: Testing | 150 - 400 K/uL | EXTERNAL | | | Count | performed at [facility];[address] | | LAB | | | Plasma | [address];[place] | | | | | | [address] | | | | + + + + + + | MPV | 6.5Comment: Testing | fl | EXTERNAL | | | | performed at [facility];[address] | | LAB | | | | [address];[place] | | | | | | [address] | | | | + + + + + + | Differentia | AUTOMATEDComment: | | EXTERNAL | | | l Type | Testing performed at | | LAB | | | | [facility];[address];[place] [address] | | | | + + + + + + | % Segmented | 64.72Comment: Testing | % | EXTERNAL | | | | performed at [facility];[address] | | LAB | | | Neutrophils | [address];[place] | | | | | | [address] | | | | + + + + + + | % | 25.91Comment: Testing | % | EXTERNAL | | | Lymphocytes | performed at [facility];[address] | | LAB | | | | [address];[place] | | | | | | [address] | | | | + + + + + + | % Monocytes | 7.53Comment: Testing | % | EXTERNAL | | | | performed at [facility];[address] | | LAB | | | | [address];[place] | | | | | | [address] | | | | + + + + + + | % | 1.35Comment: Testing | % | EXTERNAL | | | Eosinophils | performed at [facility];[address] | | LAB | | | | [address];[place] | | | | | | [id number] | | | | + + + + + + | % Basophils | 0.49Comment: Testing | % | EXTERNAL | | | | performed at [facility];[address] | | LAB | | | | [address];[place] | | | | | | [address] | | | | + + + + + + | Absolute | 5.67Comment: Testing | 1.90 - 7.40 | EXTERNAL | | | Segmented | performed at [facility];888 | K/uL | LAB | | | Neutrophils | [address];[place] | | | | | | [address] | | | | + + + + + + | Absolute | 2.27Comment: Testing | 1.00 - 3.90 | EXTERNAL | | | Lymphocytes | performed at [facility];[address] | K/uL | LAB | | | | [address];[place] | | | | | | [address] | | | | + + + + + + | Absolute | 0.66Comment: Testing | 0.00 - 0.80 | EXTERNAL | | | Monocytes | performed at [facility];[address] | K/uL | LAB | | | | [address];[place] | | | | | | [address] | | | | + + + + + + | Absolute | 0.12Comment: Testing | 0.00 - 0.50 | EXTERNAL | | | Eosinophils | performed at [facility];[address] | K/uL | LAB | | | | [address];[place] | | | | | | [address] | | | | + + + + + + | Absolute | 0.04Comment: Testing | 0.00 - 0.10 | EXTERNAL | | | Basophils | performed at [facility];[address] | K/uL | LAB | | | | [address];[place] | | | | | | [address] | | | | + + + + + + + + | Specimen | + + | Blood specimen | | (specimen) | + + + +---------+ + + | Performing | Address | City/State/Zipcode | Phone Number | | Organization | | | | + +---------+ + + | EXTERNAL LAB | | | | + +---------+ + + Phosphorus (10/22/2015 12:17 AM PST) + + + + + + | Component | Value | Ref Range | Performed | Pathologist | | | | | At | Signature | + + + + + + | PHOSPHORUS | 1.7 (L)Comment: Testing | 2.3 - 4.8 mg/dL | EXTERNAL | | | | performed at [facility] | | LAB | | | | [address];[place], [place] | | | | | | [address] | | | | + + + + + + + + | Specimen | + + | Blood specimen | | (specimen) | + + + +---------+ + + | Performing | Address | City/State/Zipcode | Phone Number | | Organization | | | | + +---------+ + + | EXTERNAL LAB | | | | + +---------+ + + Magnesium (10/22/2015 12:17 AM PST) + + + + + + | Component | Value | Ref Range | Performed | Pathologist | | | | | At | Signature | + + + + + + | Magnesium | 2.1Comment: Testing | 1.7 - 2.4 mg/dL | EXTERNAL | | | | performed at [facility];[address] | | LAB | | | | [address];[place], [place] | | | | | | [address] | | | | + + + + + + + + | Specimen | + + | Blood specimen | | (specimen) | + + + +---------+ + + | Performing | Address | City/State/Zipcode | Phone Number | | Organization | | | | + +---------+ + + | EXTERNAL LAB | | | | + +---------+ + + Lactic Acid (10/22/2015 12:17 AM PST) + + + + + + | Component | Value | Ref Range | Performed | Pathologist | | | | | At | Signature | + + + + + + | Lactate | 1.5Comment: Testing | 0.4 - 2.0 | EXTERNAL | | | | performed at [facility];888 | mmol/L | LAB | | | | [address] [facility];[place], [place] | | | | | | [address] | | | | + + + + + + + + | Specimen | + + | Blood specimen | | (specimen) | + + + +---------+ + + | Performing | Address | City/State/Zipcode | Phone Number | | Organization | | | | + +---------+ + + | EXTERNAL LAB | | | | + +---------+ + + Basic Metabolic Panel (10/22/2015 12:17 AM PST) + + + + + + | Component | Value | Ref Range | Performed | Pathologist | | | | | At | Signature | + + + + + + | Na | 143Comment: Testing | 135 - 143 | EXTERNAL | | | | performed at [facility];888 | mmol/L | LAB | | | | [address];[place], [place] | | | | | | [address] | | | | + + + + + + | K | 3.7Comment: Testing | 3.5 - 4.9 | EXTERNAL | | | | performed at [facility];888 | mmol/L | LAB | | | | [address];[place] | | | | | | [address] | | | | + + + + + + | Cl | 113 (H)Comment: Testing | 99 - 109 mmol/L | EXTERNAL | | | | performed at [facility];[address] | | LAB | | | | [address];[place] | | | | | | [address] | | | | + + + + + + | CO2 | 26Comment: Testing | 23 - 32 mmol/L | EXTERNAL | | | | performed at [facility];[address] | | LAB | | | | [address];[place] | | | | | | [address] | | | | + + + + + + | Anion Gap | 7Comment: Testing | 5 - 20 mmol/L | EXTERNAL | | | | performed at [facility];[address] | | LAB | | | | [address];[place] | | | | | | [address] | | | | + + + + + + | Glucose, | 82Comment: Testing | 65 - 99 mg/dL | EXTERNAL | | | Fasting | performed at [facility];[address] | | LAB | | | | [address];[place] | | | | | | [address] | | | | + + + + + + | BUN | 8Comment: Testing | 8 - 25 mg/dL | EXTERNAL | | | | performed at [facility];[address] | | LAB | | | | [address];[place] | | | | | | [address] | | | | + + + + + + | Creatinine | 1.0Comment: Testing | 0.70 - 1.30 | EXTERNAL | | | | performed at [facility];888 | mg/dL | LAB | | | | [address];[place] | | | | | | [address] | | | | + + + + + + | BUN/Creatin | 8Comment: Testing | | EXTERNAL | | | ine Ratio | performed at [facility];[address] | | LAB | | | | [address];[place] | | | | | | [address] | | | | + + + + + + | Calcium | 7.2 (L)Comment: Testing | 8.5 - 10.5 | EXTERNAL | | | | performed at [facility];888 | mg/dL | LAB | | | | [address];[place] | | | | | | [address] | | | | + + + + + + | Estimated | >60Comment: GFR <60: | mL/min/1.73m2 | EXTERNAL | | | GFR | CHRONIC KIDNEY DISEASE, | | LAB | | | | IF FOUND OVER A 3 MONTH | | | | | | PERIOD.GFR <15: KIDNEY | | | | | | FAILURE.FOR | | | | | | AMERICANS, MULTIPLY THE | | | | | | CALCULATED GFR BY | | | | | | 1.210.Testing performed | | | | | | at [facility];[address] | | | | | | [address];[place] [address] | | | | + + + + + + + + | Specimen | + + | Blood specimen | | (specimen) | + + + +---------+ + + | Performing | Address | City/State/Zipcode | Phone Number | | Organization | | | | + +---------+ + + | EXTERNAL LAB | | | | + +---------+ + + POC Glucose (10/21/2015 11:59 PM PST) + + + + + + | Component | Value | Ref Range | Performed | Pathologist | | | | | At | Signature | + + + + + + | Glucose, | 79Comment: Testing | 65 - 99 mg/dL | EXTERNAL | | | Fingerstick | performed at [facility];[address] | | LAB | | | | [address];[place], [place] | | | | | | [address] | | | | + + + + + + + + | Specimen | + + | | + + + +---------+ + + | Performing | Address | City/State/Zipcode | Phone Number | | Organization | | | | + +---------+ + + | EXTERNAL LAB | | | | + +---------+ + + XR Chest 1 Vw (10/21/2015 11:55 PM PST) + + | Specimen | + + | | + + + + + | Impressions | Performed At | + + + | 1. Endotracheal tube tip is approximately 1.5 cm above the | | | agustin. 2. Lung volumes and heart size within normal limits. 3. | | | There is no evidence of lobar consolidation or pneumothorax. [facility] | | | Electronically signed by Geovanny Mithcell MD on Oct 22 2015 | | | 12:40AM Referring Provider Line: [phone] ID: [id number] | | + + + + + + | Narrative | Performed At | + + + | EXAM: CHEST RADIOGRAPHY EXAM DATE: 10/21/2015 11:55 PM. | | | CLINICAL HISTORY: Cardiopulmonary failure COMPARISON: None. | | | TECHNIQUE: 1 view. FINDINGS: Lungs/Pleura: No focal opacities | | | evident. No pneumothorax or pleural effusion. Mediastinum: Within | | | exam limitations, cardiomediastinal contour is normal. Other: | | | None. | | + + + + + | Procedure Note | + + | Sean Pereira Conversion - 06/30/2019 11:38 AM PDT EXAM:CHEST RADIOGRAPHY EXAM DATE: | | 10/21/2015 11:55 PM. CLINICAL HISTORY: Cardiopulmonary failure COMPARISON: None. | | TECHNIQUE: 1 view. FINDINGS:Lungs/Pleura: No focal opacities evident. No pneumothorax or | | pleural effusion. Mediastinum: Within exam limitations, cardiomediastinal contour is | | normal. Other: None. IMPRESSION: 1. Endotracheal tube tip is approximately 1.5 cm above | | the agustin.2. Lung volumes and heart size within normal limits.3. There is no evidence | | of lobar consolidation or pneumothorax. [facility] Electronically signed by Geovanny | | MD Paula on Oct 22 2015 12:40AM Referring Provider Line: [phone] ID: [id number] | | | |TECHNIQUE: 1 view. | | | |FINDINGS: | |Lungs/Pleura: No focal opacities evident. No pneumothorax or pleural effusion. | | | |Mediastinum: Within exam limitations, cardiomediastinal contour is normal. | | | |Other: None. | | | |IMPRESSION: | | | |1. Endotracheal tube tip is approximately 1.5 cm above the agustin. | |2. Lung volumes and heart size within normal limits. | |3. There is no evidence of lobar consolidation or pneumothorax. | | | |[facility] | | | | Electronically signed by Geovanny Mitchell MD on Oct 22 2015 12:40AM Referring Provider Pamela ne: [phone] ID: [id number] | + + Gram Stain, reflex Sputum Culture (10/21/2015 11:55 PM PST) + + | Specimen | + + | Body fluid sample | | (specimen) | + + + + + | Narrative | Performed At | + + + | Specimen Description SPUTUM GRAM STAIN | EXTERNAL LAB | | GREATER THAN 10 WBCS/LPF | | | LESS THAN 10 SEC/LPF | | | NO ORGANISMS SEEN | | | Testing performed | | | at [facility];[address] [facility];[place] [address] CULTURE | | | 1+ | | | YEAST ISOLATEDAbnormal | | | NO FURTHER WORKUP | | | Testing performed at [facility], [address] [place] [address] | | | [place] [address] | | + + + + +---------+ + + | Performing | Address | City/State/Zipcode | Phone Number | | Organization | | | | + +---------+ + + | EXTERNAL LAB | | | | + +---------+ + + MRSA NAAT (10/21/2015 11:54 PM PST) + + | Specimen | + + | | + + + + + | Narrative | Performed At | + + + | SOURCE NARES(NOSE) | EXTERNAL LAB | | Testing performed at [facility];[address] [place] [address];[place] [address] MRSA PCR | | | NEGATIVE Testing performed at | | | [facility];[address] [place] [address];[place] [address] | | + + + + +---------+ + + | Performing | Address | City/State/Zipcode | Phone Number | | Organization | | | | + +---------+ + + | EXTERNAL LAB | | | | + +---------+ + + documented in this encounter Visit Diagnoses + + | Diagnosis | + + | Convulsions, unspecified convulsion type (HCC) | + + | Electrolyte imbalance Electrolyte and fluid disorders not elsewhere classified | + + documented in this encounter
--- OUTSIDE RECORDS SUMMARY | ~2020-07-08 | XMS | Encounter Summary ---
Demographics + + + | Address | [address] | | | [place] [address] | + + + | Home Phone | | + + + | Preferred Language | Unknown | + + + | Marital Status | Unknown | + + + | Caodaism Affiliation | Unknown | + + + | Race | Unknown | + + + | Ethnic Group | Unknown | + + + Author + + + | Author | [facility] | | | and [place] | + + + | Organization | [facility] | | | and [place] | + + + | Address | Unknown | + + + | Phone | Unavailable | + + + Care Team Providers + +------+ + | Care Dye Colorist Formulator Name | Role | Phone | + +------+ + PCP | Unavailable | + +------+ + Encounter Details +--------+ + + + + | Date | Type | Department | Care Team | Description | +--------+ + + + + | 09/26/ | Hospital | [facility] | | | | 2001 | Encounter | MED CTR XRAY [address] | | | | | | [place] [address] | | | | | | [phone] | | | +--------+ + + + [...]
--- OUTSIDE RECORDS SUMMARY | ~2020-07-08 | XMS | Encounter Summary ---
Demographics + + + | Address | [address] | | | [place] [address] | + + + | Home Phone | | + + + | Preferred Language | Unknown | + + + | Marital Status | Unknown | + + + | Baptist Affiliation | Unknown | + + + | Race | Unknown | + + + | Ethnic Group | Unknown | + + + Author + + + | Author | [facility] | | | and [place] | + + + | Organization | [facility] | | | and [place] | + + + | Address | Unknown | + + + | Phone | Unavailable | + + + Care Team Providers + +------+ + | Care Military Science Instructor Name | Role | Phone | + +------+ + PCP | Unavailable | + +------+ + Encounter Details +--------+ + + + + | Date | Type | Department | Care Team | Description | +--------+ + + + + | 03/24/ | [facility] | [facility] | Tobias Urias MD | | | 2006 | Encounter | MED CTR GENERIC OP | [address] | | | | | CONV DEPT [address] | [address] [place] | | | | | [place], | [address] | | | | | [place] [address] | | | | | | [phone] | | | +--------+ + + + [...]
--- OUTSIDE RECORDS SUMMARY | ~2020-07-08 | XMS | Encounter Summary ---
Demographics + + + | Address | [address] | | | [place] [address] | + + + | Home Phone | | + + + | Preferred Language | Unknown | + + + | Marital Status | Unknown | + + + | Uatsdin Affiliation | Unknown | + + + | Race | Unknown | + + + | Ethnic Group | Unknown | + + + Author + + + | Author | [facility] | | | and [place] | + + + | Organization | [facility] | | | and [place] | + + + | Address | Unknown | + + + | Phone | Unavailable | + + + Care Team Providers + +------+ + | Care Bilingual Office Assistant Name | Role | Phone | + +------+ + PCP | Unavailable | + +------+ + Encounter Details +--------+ + + + + | Date | Type | Department | Care Team | Description | +--------+ + + + + | 08/07/ | [facility] | [facility] | Abel Boateng, | | | 2002 | Encounter | [facility] | [address] [facility] | | | | | EMERGENCY CENTER | [place] [address] | | | | | [address] [facility] [address] | | | | | | [place], [place] | | | | | | [address] | | | | | | [phone] | | | +--------+ + + + [...]
[~2020-07-08 15:53] MED LIST: CALCIUM + D3 E1 EACH PO; CLARITIN10 MG PO; CYCLOBENZAPRINE10 MG PO; ETODOLAC400 MG PO; IBUPROFEN600 MG PO; LISINOPRIL10 MG PO; MAGNESIUM400 MG PO; NICOTINE GUM2 MG BUCCAL
[2020-07-08] MEDS ORDERED: NAPROXEN250 MG PO (18:21)
[2020-07-08] MEDS ORDERED: NORCO 5-325 TA1 EACH PO (20:46)
[2020-07-08] MEDS ORDERED: KEFLEX500 MG PO (20:46)
== END 2020-07-08 21:10 | disposition home or self-care (01) ==
LOC: ED 15:53
DX: N39.0 Urinary tract infection, site not specified (principal); I10 Essential (primary) hypertension
CPT/HCPCS: 74176; 81001; 99284-25

== ENCOUNTER 2022-08-20 18:01 | Emergency (ER) | payer OTHER, MEDICARE ==
[~2022-08-20] VITALS: Ht 172.7 cm; Wt 70.3 kg
[~2022-08-20 18:01] MED LIST changes: +KEFLEX500 MG PO; +NAPROXEN250 MG PO; +NORCO 5-325 TA1 EACH PO
--- NOTE | 2022-08-23 17:20 | EKG ---
[facility] [address] [facility] [place] [address] Signed Sinus rhythm with occasional premature ventricular complexes Minimal voltage criteria for LVH, may be normal variant ( R in aVL ) Inferior infarct , age undetermined Abnormal ECG No previous ECGs available Confirmed by Gumaro Napier MD () on 08/23/2022 5:20:16 PM Electronically Signed By: GUMARO NAPIER MD 08/23/22 1720 PATIENT NAME: ROLANDA KAMARA Electrocardiogram DATE OF : 53 PHYSICIAN: GUMARO NAPIER MD REPORT #: [id number] REPORT IS CONFIDENTIAL AND NOT TO BE RELEASED WITHOUT AUTHORIZATION
== END 2022-08-20 22:07 | disposition home or self-care (01) ==
LOC: ED 18:01
DX: R56.9 Unspecified convulsions (principal); I10 Essential (primary) hypertension; F15.10 Other stimulant abuse, uncomplicated
CPT/HCPCS: 36415; 70450; 71045; 80053; 81001; 84484; 85025; 87088; 87186; 93005; 93010; G0480; J2405

== ENCOUNTER 2022-10-04 19:33 | Emergency (ER) | payer OTHER, MEDICARE ==
[~2022-10-04] VITALS: Ht 172.7 cm; Wt 83.0 kg
== END 2022-10-04 22:55 ==
LOC: ED 19:33
DX: I46.9 Cardiac arrest, cause unspecified (principal); I10 Essential (primary) hypertension; F17.200 Nicotine dependence, unspecified, uncomplicated
CPT/HCPCS: 92950; 99285-25; J0171